=== PATIENT | male | born 1955 | race Caucasian/White ===

== ENCOUNTER 2023-09-26 08:24 | Outpatient (OUT) | payer OTHER, SELFPAY ==
--- NOTE | 2023-09-26 08:38 | MR_ITS ---
The [address] [address] Patient Name: DARIN FALL MRN: [id number] date: 1955 Sex: M Assigned Patient Location: MRI Current Patient Location: MRI Accession/Order Number: [id number] Exam Date: 09/26/2023 08:48 Report Date: 09/26/2023 10:34 At the request of: LUCILLE POTTS Procedure: MR ankle RT wo con EXAM: MR ankle RT wo con HISTORY: Right Acute Achilles Rupture COMPARISON: Comparison made to right tibia and fibula radiographs dated 09/24/2023. TECHNIQUE: Multiplanar, multisequence imaging of the right ankle was performed without the administration of intravenous or intra-articular gadolinium contrast. FINDINGS: There is no acute displaced fracture or dislocation of the right ankle. Bone marrow signal is normal. The right talar dome, tibial plafond, ankle mortise are intact. There is circumferential subcutaneous edema of the right hindfoot. There is trace right flexor digitorum longus tenosynovitis without tendinopathy or tear. The right posterior tibialis and flexor hallucis longus tendons are normal and without tenosynovitis, tendinopathy, or tear. The extensor tendons including the anterior tibialis, extensor hallucis longus, and extensor digitorum longus are also normal without tenosynovitis, tendinopathy, or tear. There is trace right peroneal tenosynovitis. There is flattening of the retromalleolar portion of the right peroneus brevis tendon likely with partial tear/longitudinal split tear that extends to its inframalleolar portion. Distally, the right peroneus brevis attaches normally to the base of the fifth metatarsal. There is severe right Achilles tendinopathy with full-thickness tear/rupture centered approximately 8 cm proximal to its calcaneal attachment. There is adjacent soft tissue edema that extends to involve the pre-Achilles fat pad. The anterior and posterior tibiofibular ligaments are intact. The anterior talofibular, calcaneofibular, and posterior talofibular ligaments are intact and normal. The deltoid ligament is normal. The sinus tarsi is normal. The plantar fascia is normal. MR/MR ankle RT wo con IMPRESSION: 1. Severe right Achilles tendinopathy with full-thickness tear/rupture centered approximately 8 cm proximal to its calcaneal attachment. There is adjacent soft tissue edema. 2. Trace right flexor digitorum longus tenosynovitis without tendinopathy or tear. The right posterior tibialis and flexor hallucis longus tendon are normal. 3. Trace right pericardial tenosynovitis. There is flattening of the retromalleolar portion of the right peroneus brevis tendon, likely with partial tear/functional split tear that extends to its inferolateral portion. 4. Intact medial and lateral right ankle ligaments. 5. No acute fracture or dislocation of the right ankle. Electronically authenticated by: DIRK KAT Date: 09/26/2023 10:34
== END 2023-09-26 08:25 | disposition home or self-care (01) ==
LOC: MRI 08:27
PROVIDERS: Visit Provider Physician Assistant
DX: S86.011A Strain of right Achilles tendon, initial encounter (principal)
CPT/HCPCS: 73721